=== PATIENT | male | born 1975 | race Two or more races ===

== ENCOUNTER 2023-10-13 14:56 | Emergency (ER) | payer MEDICAID ==
[~2023-10-13] VITALS: Ht 180.3 cm; Wt 90.7 kg
[2023-10-13 15:11] VITALS: TEMP 98.6
[2023-10-13 16:48] VITALS: BP 152/80; O2SAT 100
== END 2023-10-13 16:49 | disposition home or self-care (01) ==
LOC: ER 15:00
DX: T40.411A Poisoning by fentanyl or fentanyl analogs, accidental (unintentional), initial encounter (principal); Y92.89 Other specified places as the place of occurrence of the external cause